=== PATIENT | female | born 1960 | race Caucasian/White ===

== ENCOUNTER → 2017-07-13 | Outpatient (CLI) | payer BC ==
[~2017-07-13] MED LIST: AMBIEN10 M1 PO; CATAFLAM50 MG PO; CIPRO500 MG PO; DIFLUCAN100 MG PO; FLAGYL500 MG PO; HYDROCODONE BIT1 T11 PO; IBUPROFEN 30 M800 MG PO; LISINOPRIL5 MG PO; NEXIUM40 MG PO; PROTONIX40 MG PO; ULTRAM50 MG PO; VICODIN 5/500 505 MG PO; ZOFRAN4 MG PO
== END | disposition home or self-care (01) ==
LOC: US 06-27 07:30
DX: N20.0 Calculus of kidney (principal); K76.0 Fatty (change of) liver, not elsewhere classified; R16.1 Splenomegaly, not elsewhere classified

== ENCOUNTER → 2017-09-20 | Outpatient (CLI) | payer BC | END | disposition home or self-care (01) | LOC: MAMMO 08-29 07:40 | DX: Z12.31 Encounter for screening mammogram for malignant neoplasm of breast (principal) ==

== ENCOUNTER 2020-06-15 13:44 | Emergency (ER) | payer BC ==
[~2020-06-15] VITALS: Ht 157.4 cm; Wt 97.5 kg
[2020-06-15 14:33] LABS: BASO # 0.1 10*3/uL (0.0-0.1); BASO % 0.9 % (0.0-1.0); EOS # 0.2 10*3/uL (0.0-0.4); EOS % 3.2 % (1.0-4.0); HEMATOCRIT 39.7 % (37.0-47.0); LYMPH # 1.3 10*3/uL (1.3-4.4); LYMPH % 17.4 % (27.0-41.0); MEAN CELL VOLUME 84.3 fl (81.0-99.0); MEAN CORPUSCULAR HGB 28.2 pg (27.0-31.0); MEAN CORPUSCULAR HGB CONC 33.5 g/dl (33.0-37.0); MEAN PLATELET VOLUME 10.4 fl (9.6-12.3); MONO # 0.5 10*3/uL (0.1-1.0); MONO % 6.4 % (3.0-9.0); NEUT # 5.4 10*3/uL (2.3-7.9); NEUT % 71.8 % (47.0-73.0); PLATELET COUNT AUTOMATED 251 10*3/uL (130-400); RED BLOOD COUNT 4.71 10*6/uL (4.10-5.10); RED CELL DISTRI WIDTH 13.2 % (0-14.5); WHITE BLOOD COUNT 7.5 10*3/uL (4.8-10.8)
[2020-06-15 14:48] LABS: ALBUMIN 3.8 gm/dl (3.1-4.5); ALKALINE PHOSPHATASE 73 U/L (45-117); BUN 11 mg/dl (7-24); CHLORIDE 104 mmol/L (98-107); CREATININE 0.88 mg/dL (0.55-1.02); POTASSIUM 3.7 mmol/L (3.5-5.1); SGOT/AST 18 IU/L (3-35); SGPT/ALT 36 U/L (12-78); SODIUM 138 mmol/L (136-145); TOTAL PROTEIN 7.8 gm/dL (6.4-8.2)
[2020-06-15] MEDS ORDERED: CIPRO500 MG PO ×2 (18:08→18:13)
[2020-06-15] MEDS ORDERED: FLAGYL500 MG PO (18:08)
== END 2020-06-15 18:53 | disposition home or self-care (01) ==
LOC: ED 13:44
PROVIDERS: Emergency Medicine
DX: K57.32 Diverticulitis of large intestine without perforation or abscess without bleeding (principal); I10 Essential (primary) hypertension; Z88.8 Allergy status to other drugs, medicaments and biological substances; Z88.2 Allergy status to sulfonamides; Z79.899 Other long term (current) drug therapy

== ENCOUNTER → 2020-10-18 | Outpatient (CLI) | payer BC | END | disposition home or self-care (01) | LOC: MAMMO 07:55 | PROVIDERS: ATTEND Nurse Practitioner Primary Care | DX: Z12.31 Encounter for screening mammogram for malignant neoplasm of breast (principal); I34.1 Nonrheumatic mitral (valve) prolapse; E65 Localized adiposity ==

== ENCOUNTER → 2021-04-08 | Outpatient (CLI) | payer BC | END | disposition home or self-care (01) | LOC: RAD 01:21 | PROVIDERS: ATTEND Nurse Practitioner Primary Care | DX: M47.816 Spondylosis without myelopathy or radiculopathy, lumbar region (principal); M53.86 Other specified dorsopathies, lumbar region; M89.38 Hypertrophy of bone, other site ==

== ENCOUNTER → 2022-04-06 | Outpatient (CLI) | payer BC ==
[2022-04-06 17:02] LABS: ACT PARTIAL THROMBO TIME 25.9 SECONDS (20.0-32.1); INTERNATIONAL NORM RATIO 0.9 (2.0-3.5)
[2022-04-07 05:07] LABS: TOTAL PROTEIN, SERUM 5.7 g/dL (6.0-8.5)
[2022-04-07 07:07] LABS: HEPATITIS B SURFACE AG Negative (Negative)
[2022-04-07 08:08] LABS: RHEUMATOID FACTOR 11.9 IU/mL (<14.0)
[2022-04-07 14:09] LABS: ANTI-DSDNA ANTIBODIES <1 IU/mL (0-9)
[2022-04-07 15:07] LABS: A/G RATIO 0.7 (0.7-1.7); ALBUMIN 2.3 g/dL (2.9-4.4); ALPHA-1-GLOBULIN 0.3 g/dL (0.0-0.4); ALPHA-2-GLOBULIN 1.3 g/dL (0.4-1.0); BETA GLOBULIN 1.3 g/dL (0.7-1.3); GAMMA GLOBULIN 0.6 g/dL (0.4-1.8); GLOBULIN, TOTAL 3.4 g/dL (2.2-3.9); M-SPIKE Not Observed g/dL (Not Observed)
== END | disposition home or self-care (01) ==
LOC: LAB 15:50
PROVIDERS: ATTEND Family Medicine
DX: R60.0 Localized edema (principal); N04.9 Nephrotic syndrome with unspecified morphologic changes

== ENCOUNTER → 2022-05-02 | Outpatient (CLI) | payer BC | END | disposition home or self-care (01) | LOC: US 07:22 | PROVIDERS: ATTEND Family Medicine | DX: D73.89 Other diseases of spleen (principal); R16.1 Splenomegaly, not elsewhere classified; N08 Glomerular disorders in diseases classified elsewhere ==

== ENCOUNTER → 2022-06-28 | Outpatient (CLI) | payer BC | END | disposition home or self-care (01) | LOC: MAMMO 06-19 08:30 | PROVIDERS: ATTEND Family Medicine | DX: Z12.31 Encounter for screening mammogram for malignant neoplasm of breast (principal); N64.9 Disorder of breast, unspecified ==

== ENCOUNTER 2022-12-16 12:34 | Emergency (ER) | payer BC ==
[~2022-12-16] VITALS: Ht 157.4 cm; Wt 106.6 kg
[2022-12-16 13:26] LABS: BASO # 0.1 10*3/uL (0.0-0.1); BASO % 1.7 % (0.0-1.0); EOS # 0.2 10*3/uL (0.0-0.4); EOS % 3.3 % (1.0-4.0); HEMATOCRIT 40.2 % (37.0-47.0); LYMPH # 1.4 10*3/uL (1.3-4.4); LYMPH % 22.4 % (27.0-41.0); MEAN CELL VOLUME 84.3 fl (81.0-99.0); MEAN CORPUSCULAR HGB 27.9 pg (27.0-31.0); MEAN CORPUSCULAR HGB CONC 33.1 g/dl (33.0-37.0); MEAN PLATELET VOLUME 10.7 fl (9.6-12.3); MONO # 0.5 10*3/uL (0.1-1.0); MONO % 7.1 % (3.0-9.0); NEUT # 4.1 10*3/uL (2.3-7.9); NEUT % 64.7 % (47.0-73.0); PLATELET COUNT AUTOMATED 262 10*3/uL (130-400); RED BLOOD COUNT 4.77 10*6/uL (4.10-5.10); RED CELL DISTRI WIDTH 13.9 % (0-14.5); WHITE BLOOD COUNT 6.3 10*3/uL (4.8-10.8)
[2022-12-16 13:49] LABS: BILIRUBIN Negative (Negative); BLOOD Trace-Lysed (Negative); CLARITY Clear (Clear); COLOR Yellow (Yellow); GLUCOSE Negative (Negative); KETONE Negative (Negative); LEUKO ESTERASE Trace (Negative); NITRITE Negative (Negative); PH 5.5 (4.5-8.0); UROBILINOGEN 0.2 E.U./dl (0.0-1.0)
[2022-12-16 14:02] LABS: BACTERIA TRACE; RBC 0-2 rbc/hpf (0-2); WBC 0-2 wbc/hpf (0-5)
[2022-12-16 14:14] LABS: ALKALINE PHOSPHATASE 67 U/L (46-116); BUN 9 mg/dl (9-23); CHLORIDE 104 mmol/L (98-107); LIPASE 29 U/L (12-53); POTASSIUM 4.1 mmol/L (3.4-5.1); SGPT/ALT 32 U/L (10-49); TOTAL PROTEIN 7.4 gm/dL (6.0-8.0)
== END 2022-12-16 14:53 | disposition home or self-care (01) ==
LOC: ED 12:34
PROVIDERS: Internal Medicine
DX: D25.9 Leiomyoma of uterus, unspecified (principal); Z88.2 Allergy status to sulfonamides; Z88.8 Allergy status to other drugs, medicaments and biological substances; Z90.49 Acquired absence of other specified parts of digestive tract; Z98.890 Other specified postprocedural states

== ENCOUNTER → 2023-01-29 | Outpatient (CLI) | payer BC ==
[~2023-01-29] MED LIST changes: +PREDNISONE50 MG PO
== END | disposition home or self-care (01) ==
LOC: US 15:30
PROVIDERS: ATTEND Nurse Practitioner Women's Health
DX: D25.9 Leiomyoma of uterus, unspecified (principal)

== ENCOUNTER 2023-01-31 17:44 | Emergency (ER) | payer BC ==
[~2023-01-31] VITALS: Ht 157.4 cm; Wt 102.1 kg
[~2023-01-31 17:44] MED LIST changes: -PREDNISONE50 MG PO
[2023-01-31] MEDS ORDERED: PREDNISONE50 MG PO (19:56)
== END 2023-01-31 20:11 | disposition home or self-care (01) ==
LOC: ED 17:44
DX: M25.461 Effusion, right knee (principal); M06.9 Rheumatoid arthritis, unspecified; M81.0 Age-related osteoporosis without current pathological fracture; I10 Essential (primary) hypertension; I34.1 Nonrheumatic mitral (valve) prolapse; Z88.2 Allergy status to sulfonamides; Z88.8 Allergy status to other drugs, medicaments and biological substances; Z90.49 Acquired absence of other specified parts of digestive tract; Z98.890 Other specified postprocedural states

== ENCOUNTER → 2023-02-02 | Outpatient (CLI) | payer BC ==
[~2023-02-02] MED LIST changes: +PREDNISONE50 MG PO
== END | disposition home or self-care (01) ==
LOC: RAD 13:11
PROVIDERS: ATTEND Orthopaedic Surgery
DX: M85.861 Other specified disorders of bone density and structure, right lower leg (principal); M25.861 Other specified joint disorders, right knee

== ENCOUNTER → 2023-12-13 | Outpatient (CLI) | payer BC | END | disposition home or self-care (01) | LOC: MAMMO 00:40 | PROVIDERS: ATTEND Nurse Practitioner Primary Care | DX: Z12.31 Encounter for screening mammogram for malignant neoplasm of breast (principal) ==

== ENCOUNTER → 2023-12-26 | Outpatient (CLI) | payer BC | END | disposition home or self-care (01) | LOC: MAMMO 04:28 | PROVIDERS: ATTEND Nurse Practitioner Primary Care | DX: R92.322 Mammographic fibroglandular density, left breast (principal); R92.8 Other abnormal and inconclusive findings on diagnostic imaging of breast ==

== ENCOUNTER → 2024-02-11 | Outpatient (CLI) | payer BC | END | disposition home or self-care (01) | LOC: ORTHO 00:55 | PROVIDERS: ATTEND Orthopaedic Surgery | DX: M19.041 Primary osteoarthritis, right hand (principal); M25.741 Osteophyte, right hand ==

== ENCOUNTER → 2024-03-13 | Outpatient (CLI) | payer BC ==
[~2024-03-13] MED LIST changes: +IOHEXOL 300 MG/ML 100 ML VIAL IV ONE
== END | disposition home or self-care (01) ==
LOC: CT 00:13
PROVIDERS: ATTEND Physician Assistant
DX: K57.30 Diverticulosis of large intestine without perforation or abscess without bleeding (principal); D50.9 Iron deficiency anemia, unspecified; K76.0 Fatty (change of) liver, not elsewhere classified; D25.9 Leiomyoma of uterus, unspecified

== ENCOUNTER → 2024-07-28 | Outpatient (CLI) | payer BC ==
[~2024-07-28] MED LIST changes: -IOHEXOL 300 MG/ML 100 ML VIAL IV ONE
== END | disposition home or self-care (01) ==
LOC: LAB 13:45
PROVIDERS: ATTEND Nurse Practitioner Primary Care
DX: D50.9 Iron deficiency anemia, unspecified (principal)

== ENCOUNTER → 2024-09-11 | Day surgery (SDC) | payer BC ==
[2024-09-08 08:31] LABS: BUN 10 mg/dl (9-23); CHLORIDE 105 mmol/L (98-107); POTASSIUM 4.4 mmol/L (3.4-5.1)
[~2024-09-11] VITALS: Ht 157.4 cm; Wt 102.1 kg
[~2024-09-11] MED LIST changes: +B COMPLEX1 EACH PO; +FUROSEMIDE20 M1 PO; +Lactated Ringer's Solution 500 ML IV ONE; +Lidocaine Hydrochloride 2% 5 ML SDV IV ONE; +Lidocaine Hydrochloride 5 ML AMP ONE; +MAG GLYCINATE100 MG PO; +METOPROLOL SUCC25 M2 PO; +OMEPRAZOLE40 MG PO; +PROPOFOL 200 MG/20 ML VIAL IV ONE; +ceFAZolin sodium/sodium chlor 1 GM/10 ML SYR IV ONE; +ceFAZolin sodium/sodium chlor 10 ML IV ONE
[2024-09-11 06:53] VITALS: BP 183/85
[2024-09-11 08:10] VITALS: BP 127/76
[2024-09-11 08:25] VITALS: BP 141/73
[2024-09-11 08:39] VITALS: BP 150/70
== END | disposition home or self-care (01) ==
LOC: SDC 09-08 08:45
PROVIDERS: ATTEND Orthopaedic Surgery
DX: G56.01 Carpal tunnel syndrome, right upper limb (principal); M65.341 Trigger finger, right ring finger; M65.841 Other synovitis and tenosynovitis, right hand; I10 Essential (primary) hypertension; D64.9 Anemia, unspecified; Z98.890 Other specified postprocedural states; Z88.2 Allergy status to sulfonamides; Z88.8 Allergy status to other drugs, medicaments and biological substances; Z79.899 Other long term (current) drug therapy

== ENCOUNTER → 2024-12-17 | Outpatient (CLI) | payer BC ==
[~2024-12-17] MED LIST changes: -Lactated Ringer's Solution 500 ML IV ONE; -Lidocaine Hydrochloride 2% 5 ML SDV IV ONE; -Lidocaine Hydrochloride 5 ML AMP ONE; -PROPOFOL 200 MG/20 ML VIAL IV ONE; -ceFAZolin sodium/sodium chlor 1 GM/10 ML SYR IV ONE; -ceFAZolin sodium/sodium chlor 10 ML IV ONE
== END | disposition home or self-care (01) ==
LOC: MAMMO 07:45
PROVIDERS: ATTEND Nurse Practitioner Primary Care
DX: N64.89 Other specified disorders of breast (principal); R92.8 Other abnormal and inconclusive findings on diagnostic imaging of breast

== ENCOUNTER 2025-05-28 10:13 | Emergency (ER) | payer BC ==
[~2025-05-28] VITALS: Ht 157.4 cm; Wt 108.9 kg
[2025-05-28] MEDS ORDERED: METRONIDAZOLE500 M1 PO (11:03)
[2025-05-28] MEDS ORDERED: FLUCONAZOLE100 MG PO (11:03)
[2025-05-28] MEDS ORDERED: CIPRO500 MG PO (11:03)
== END 2025-05-28 11:16 | disposition home or self-care (01) ==
LOC: ED 10:13
DX: K57.92 Diverticulitis of intestine, part unspecified, without perforation or abscess without bleeding (principal); Z88.2 Allergy status to sulfonamides; Z88.8 Allergy status to other drugs, medicaments and biological substances; Z79.899 Other long term (current) drug therapy; Z90.49 Acquired absence of other specified parts of digestive tract

== ENCOUNTER → 2025-07-30 | Outpatient (CLI) | payer BC ==
[~2025-07-30] MED LIST changes: +FLUCONAZOLE100 MG PO; +METRONIDAZOLE500 M1 PO
== END | disposition home or self-care (01) ==
LOC: LAB 15:39
PROVIDERS: ATTEND Nurse Practitioner Family
DX: Z13.29 Encounter for screening for other suspected endocrine disorder (principal)